=== PATIENT | male | born 1975 | race Two or more races ===

== ENCOUNTER 2017-03-22 11:30 | Emergency (ER) | payer OTHER ==
[~2017-03-22] VITALS: Ht 182.9 cm; Wt 97.5 kg
[2017-03-22 14:36] VITALS: BP 139/85
== END 2017-03-22 15:37 | disposition home or self-care (01) ==
LOC: ER 11:30
DX: H60.92 Unspecified otitis externa, left ear (principal); Z90.49 Acquired absence of other specified parts of digestive tract; Z88.0 Allergy status to penicillin